=== PATIENT | female | born 1945 ===

== ENCOUNTER 2023-12-05 13:45 | Outpatient (RCR) | payer MEDICARE, SELFPAY ==
[2021-10-05 16:00] VITALS: BMI 20.9
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
== END 2023-12-06 10:59 ==
LOC: PHYS 13:45
PROVIDERS: Family Provider Nurse Practitioner Family; PCP Nurse Practitioner Family; Referring Provider Nurse Practitioner Family; Visit Provider Nurse Practitioner Family
DX: H81.10 Benign paroxysmal vertigo, unspecified ear (principal); H83.09 Labyrinthitis, unspecified ear
CPT/HCPCS: 97110; 97112; 97140; 97163; 97535

== ENCOUNTER 2024-01-10 09:04 | Emergency (ER) | payer MEDICARE, SELFPAY ==
[2021-10-05 16:00] VITALS: BMI 20.9
[2024-01-10] VITALS (7 sets, daily range): BP systolic 137–149; BP diastolic 65–70; PULSE 60–100; RESP 14–16; TEMP 36.4–36.8; O2SAT 94–98; BMI 20.3
--- NOTE | 2024-01-10 09:17 | DI.RAD.S_ITS ---
PROCEDURE: XR CHEST 1V INDICATIONS: suspected sepsis TECHNIQUE: One view of the chest was acquired. COMPARISON: None. FINDINGS: Surgical changes and devices: None. Lungs and pleura: Lungs are clear. No pleural effusions or pneumothorax. Mediastinum: Mediastinal contours appear normal. Heart size is normal. Bones and chest wall: No suspicious bony lesions. Overlying soft tissues appear unremarkable. IMPRESSION: No acute cardiopulmonary abnormality is seen. Dictated by: Missael Newby M.D. on 01/10/2024 at 10:00 Approved by: Missael Newby M.D. on 01/10/2024 at 10:04
--- NOTE | 2024-01-10 09:17 | EKG_ITS ---
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
--- NOTE | 2024-01-10 09:21 | DI.CT.S_ITS ---
PROCEDURE: CT HEAD/BRAIN WO CON INDICATIONS: confused TECHNIQUE: Noncontrast 4.5 mm thick angled axial sections acquired from the foramen magnum to the vertex, with coronal and sagittal reformats. For radiation dose reduction, the following was used: automated exposure control, adjustment of mA and/or kV according to patient size. COMPARISON: None. FINDINGS: Image quality: Diagnostic. CSF spaces: Basal cisterns are patent. No extra-axial fluid collections. The ventricles are symmetric in size and shape. Brain: No intracranial bleeds or masses. There is cerebral volume loss for age, with resultant ventricular and sulcal prominence. There are periventricular and deep white matter chronic small vessel ischemic changes. There is intracranial internal carotid artery atherosclerosis. Skull and face: Calvarium and visualized facial bones appear intact, without suspicious lesions. Sinuses: Visualized sinuses and mastoids are clear. IMPRESSION: 1. CT head without acute intracranial abnormalities or acute calvarial fractures. 2. Age-related senescent changes and sequela of chronic small vessel ischemic disease. Dictated by: Jay Sterling M.D. on 01/10/2024 at 9:52 Approved by: Jay Sterling M.D. on 01/10/2024 at 9:52
[2024-01-10 09:41] LABS: Add Manual Diff / Slide Review NO; Basophils Absolute Auto 100 /uL (0-100); Basophils Percent Auto 0.7 % (0-2); Eosinophils Absolute Auto 100 /uL (0-450); Eosinophils Percent Auto 1.1 % (2-4); Hematocrit 39.4 % (36-46); Hemoglobin 13.1 g/dL (12.0-16.0); Lymphocytes Absolute Auto 1900 /uL (1100-4500); Lymphocytes Percent Auto 17.8 % (25-40); Mean Corpuscular HGB Conc 33.2 % (30-36); Mean Corpuscular Hemoglobin 31.3 PG (26-34); Mean Corpuscular Volume 94.4 fL (80-100); Monocytes Absolute Auto 700 /uL (0-900); Monocytes Percent Auto 6.8 % (3-14); Neutrophils Absolute Auto 7800 /uL (1500-7000); Neutrophils Percent Auto 73.6 % (50-75); Platelet Count 262 X10^3/uL (150-400); Red Blood Cell Count 4.17 X10^6/uL (4.0-5.2); Red Cell Distribution Width 13.3 % (11.6-14.8); White Blood Cell Count 10.6 X10^3/uL (4.5-11.0)
[2024-01-10] MEDS: SODIUM CHLORIDE 0.9% 1,000 ML 1000 ML IV (09:41)
[2024-01-10 09:47] LABS: INR 0.9 (0.9-1.3); Prothrombin Time 10.6 SECONDS (9.4-12.5)
[2024-01-10 09:49] LABS: PTT Partial Thromboplastin Tim 33 SECONDS (25.1-36.5)
[2024-01-10 09:51] LABS: Alanine Aminotransferase 12 IU/L (<35); Albumin 4.2 g/dL (3.5-5.0); Albumin Globulin Ratio 1.6 (1.0-2.8); Alkaline Phosphatase 69 U/L (38-126); Aspartate Aminotransferase 26 IU/L (14-36); BUN Creatinine Ratio 17.9 (6-22); Bilirubin Total 0.4 mg/dL (0.2-1.3); Blood Urea Nitrogen 12 mg/dL (7-17); Calcium 8.7 mg/dL (8.4-10.2); Carbon Dioxide 29 mmol/L (22-32); Chloride 102 mmol/L (98-107); Estimated Glomerular Filt Rate > 60 mL/min (>60); Globulin 2.6 g/dL (1.7-4.1); Glucose 97 mg/dL (80-110); HEMOLYSIS 30 (0-50); Lipase 34 U/L (23-300); Potassium 3.8 mmol/L (3.4-5.1); Sodium 134 mmol/L (137-145); Total Protein 6.8 g/dL (6.3-8.2)
[2024-01-10 09:52] LABS: Lactate (Lactic Acid) 0.8 mmol/L (0.7-2.1)
[2024-01-10 10:08] LABS: Procalcitonin 0.035 ng/mL (<0.5)
--- NOTE | 2024-01-10 10:39 | ED.NEUROSD ---
HPI - Neuro Symptoms/Deficit General Chief Complaint: Neuro Symptoms/Deficit Stated Complaint: thinks had a mini stroke Time Seen by Provider: 01/10/24 10:38 Source: patient Mode of arrival: Ambulatory History of Present Illness HPI Narrative: 78-year-old female history of left hip surgery, osteoarthritis anticoagulation who presents with complaint of urinary incontinence overnight, patient did note some dysuria urgency frequency in the last couple days she took some azo and symptoms improved. She states she woke up this morning had Peed the bed. She states she felt like she was off she was having some trouble with her speech. She would to sort of off. She feels a little bit off balance but has been able to ambulate. Denies headaches, denies fevers, no chest pain or shortness of breath, no vision changes. No nausea or vomiting no abdominal back or flank pain. Patient denies any issues with bowel movements. She denies any numbness tingling or weakness of her extremities she states they all move appropriately. She states home medications include Xanax and Soma. She has had prior appendectomy and tonsillectomy. Does not tolerate narcotics such as OxyContin she gets vomiting. Quit smoking in her 20s only smoked for 4 years. She has 1 beer weekly, no recreational drugs. Her primary care physician is Deneen Nina. On Anticoagulants: No Related Data Home Medications Medication Instructions Recorded Confirmed alprazolam 1 mg tablet (Xanax) 1 mg PO TID anxiety 09/08/20 09/26/23 carisoprodol 350 mg tablet (Soma) 350 mg PO BEDTIME 09/08/20 09/26/23 Previous Rx's Medication Instructions Recorded ondansetron 4 mg disintegrating 4 mg PO Q8H PRN nausea and 06/22/23 tablet vomiting #10 tabs nitrofurantoin 100 mg PO Q12H 7 days #14 caps 01/10/24 monohydrate/macrocrystals 100 mg capsule (Macrobid) Allergies Allergy/AdvReac Type Severity Reaction Status Date / Time Penicillins Allergy Severe Nausea, Verified 01/10/24 09:18 Rash, difficulty breathing tetracycline Allergy Nausea Verified 01/10/24 09:18 Milk Containing Products AdvReac Mild Diarrhea Verified 01/10/24 09:18 (Dairy) Opioids - Morphine Analogues AdvReac Mild Nausea Verified 01/10/24 09:18 Review of Systems Review of Systems ROS Unobtainable: All systems reviewed & are unremarkable except as noted in HPI and below Hematologic/Lymphatic On Anticoagulants: No Patient History Medical History Depression Measles Chicken pox Anemia Tinnitus Painful menstrual periods Heavy menstrual period Abnormal Pap smear of cervix History of urinary incontinence Elevated prostate specific antigen (PSA) Dizziness Murmur, cardiac Elevated cholesterol Osteoarthritis Anxiety Surgical History Anesthesia History of right hip replacement History of cataract removal with insertion of prosthetic lens (~2009) History of endometrial ablation Family History Daughter Non Hodgkin's lymphoma Father History of heart disease Hypertension Mother Mental health problem Social History household members: none Smoking Status: Former smoker alcohol intake: current Smoking Status: Former smoker alcohol intake frequency: holidays/special occasions only Substance Use Type: sedatives Exam Narrative Exam Narrative: GEN: well nourished, well appearing female, alert and oriented x 3, patient appears to be in mild distress. HEENT: Atraumatic, pupils are equal round reactive to light, extraocular movements are intact, nares are clear, TMs are clear with no fluid, there is no conjunctival pallor. Throat is clear without any exudates, erythema, tonsillar enlargement or uvular deviation, no facial droop. HEART: Regular rate and rhythm without murmur, clicks, rubs. Pulses are equal in upper and lower extremities LUNGS:Lungs clear to auscultation, no wheezes, rales, crackles, chest moves symmetrically ABD:bowel sounds normal, soft, non-tender, no guarding, rebound, rigidity, no masses noted, no hepatosplenomegaly :No CVA tenderness MSCL: Non-tender, no muscle atrophy, muscles strength 5/5 upper and lower extremities, full range of motion NEURO:CN 2-12 intact, sensation normal, finger nose finger test normal, heel patino test normal, no dysarthria or aphasia. Initial Vital Signs Initial Vital Signs: Vital Signs Temperature 98.3 F 01/10/24 09:05 Pulse Rate 63 01/10/24 09:05 Respiratory Rate 14 01/10/24 09:05 Blood Pressure 149/70 H 01/10/24 09:05 Pulse Oximetry 94 01/10/24 09:05 Oxygen Delivery Method Room Air 01/10/24 09:05 Scores NIH Stroke Scale Level of Conciousness: Alert, keenly responsive Ask month/age: Answers both questions correctly. Open/close eyes, close hand: Performs both tasks correctly Best gaze horizontal: Normal Visual brooks: No visual loss Facial palsy: Normal symetrical movement Left arm drift: No drift for full 10 sec Right arm drift: No drift for full 10 sec Left leg drift: No drift for full 5 sec Right leg drift: No drift for full 5 sec Limb ataxia: Absent Sensory on face/arms/legs: Normal, no sensory loss Best language: No aphasia, normal Dysarthria: Normal Extinction or inattention: No abnormality Total NIH Stroke scale score: 0 Course Orders Ordered: ED Orders 01/10/24 11:20 Urinalysis and Microscopic Stat Urine Culture Stat Discontinued Medications Sodium Chloride (Normal Saline 0.9%) 1,000 mls @ 1,000 mls/hr IV BOLUS ONE Stop: 01/10/24 10:16 Last Infusion: 01/10/24 11:30 Dose: Infused Documented By: Admin: 01/10/24 09:41 Dose: 1,000 mls/hr Documented By: LISETTE Nitrofurantoin Macrocrystals (Nitrofurantoin Er 100 Mg Capsule) 100 mg PO NOW ONE Stop: 01/10/24 12:03 Ondansetron HCl (Ondansetron 4 Mg/2 Ml Inj) 4 mg IV NOW PRN PRN Reason: Nausea And Vomiting Vital Signs Vital signs: Vital Signs - 8 hr 01/10/24 12:21 Temperature 97.6 F Pulse Rate 100 H Respiratory Rate 16 Blood Pressure 148/68 H Pulse Oximetry 98 Oxygen Delivery Method Room Air MDM - Neuro Symptoms/Deficit Lab Data 01/10/24 09:27 01/10/24 09:27 Labs: Lab Results 01/10/24 01/10/24 Range/Units 09:27 11:20 WBC 10.6 (4.5-11.0) X10^3/uL RBC 4.17 (4.0-5.2) X10^6/uL Hgb 13.1 (12.0-16.0) g/dL Hct 39.4 (36-46) % MCV 94.4 (80-100) fL MCH 31.3 (26-34) PG MCHC 33.2 (30-36) % RDW 13.3 (11.6-14.8) % Plt Count 262 (150-400) X10^3/uL Neut % (Auto) 73.6 (50-75) % Lymph % (Auto) 17.8 L (25-40) % [place] % (Auto) 6.8 (3-14) % Eos % (Auto) 1.1 L (2-4) % Baso % (Auto) 0.7 (0-2) % Neut # (Auto) 7800 H (8378-6537) /uL Lymph # (Auto) 1900 (3575-9470) /uL [place] # (Auto) 700 (0-900) /uL Eos # (Auto) 100 (0-450) /uL Baso # (Auto) 100 (0-100) /uL PT 10.6 (9.4-12.5) SECONDS INR 0.9 (0.9-1.3) APTT 33 (25.1-36.5) SECONDS Sodium 134 L (137-145) mmol/L Potassium 3.8 (3.4-5.1) mmol/L Chloride 102 (98-107) mmol/L Carbon Dioxide 29 (22-32) mmol/L BUN 12 (7-17) mg/dL Creatinine 0.67 (0.52-1.04) mg/dL Estimated GFR > 60 (>60) mL/min BUN/Creatinine Ratio 17.9 (6-22) Glucose 97 (80-110) mg/dL Lactate 0.8 (0.7-2.1) mmol/L Calcium 8.7 (8.4-10.2) mg/dL Total Bilirubin 0.4 (0.2-1.3) mg/dL AST 26 (14-36) IU/L ALT 12 (<35) IU/L Alkaline Phosphatase 69 (38-126) U/L Total Protein 6.8 (6.3-8.2) g/dL Albumin 4.2 (3.5-5.0) g/dL Globulin 2.6 (1.7-4.1) g/dL Albumin/Globulin Ratio 1.6 (1.0-2.8) Lipase 34 (23-300) U/L Procalcitonin 0.035 (<0.5) ng/mL Urine Color Yellow Urine Appearance Sl cloudy Urine pH 6.0 (4.5-8.0) Ur Specific [place] 1.010 (1.000-1.035) Urine Protein Negative (Negative) Urine Glucose (UA) Negative (Negative) g/dL Urine Ketones Negative (NEGATIVE) Urine Occult Blood Trace-intact (Negative) Urine Nitrate Positive H (Negative) Urine Bilirubin Negative (NEGATIVE) Urine Urobilinogen 0.2 (0.2) E.U./dL Ur Leukocyte Esterase 2+ H (NEGATIVE) Urine RBC 5-10/hpf H (0-5/HPF) Urine WBC 10-30/hpf H (0-5/HPF) Ur Squamous Epith Cells 0-1 /hpf (0-5/HPF) Urine Bacteria Many (>30) H (None) Ur Culture Indicated? Specimen cultured Vol Urine Centrifuged 10ml (spun) Imaging Data CT scan - head: Radiologist's Impression: Close Head CT (Signed) Jay Sterling - 01/10/24 Chest X-Ray (Signed) Missael Newby - 01/10/24 Hip X-Ray (Signed) Alcides Maldonado - 09/17/20 Hip X-Ray (Signed) Missael Newby - 09/17/20 Launch?[place] [address] CT Scan Report Signed Patient: Josefina No MR#: [id number] : 1945 Acct:[id number] Age/Sex: 78 / F Date of Service: 01/10/24 Loc: ED Accession Number: [id number] Procedure: CT head/brain wo con Ordering Provider: Saranya Haas D.O. PROCEDURE: CT HEAD/BRAIN WO CON INDICATIONS: confused TECHNIQUE: Noncontrast 4.5 mm thick angled axial sections acquired from the foramen magnum to the vertex, with coronal and sagittal reformats. For radiation dose reduction, the following was used: automated exposure control, adjustment of mA and/or kV according to patient size. COMPARISON: None. FINDINGS: Image quality: Diagnostic. CSF spaces: Basal cisterns are patent. No extra-axial fluid collections. The ventricles are symmetric in size and shape. Brain: No intracranial bleeds or masses. There is cerebral volume loss for age, with resultant ventricular and sulcal prominence. There are periventricular and deep white matter chronic small vessel ischemic changes. There is intracranial internal carotid artery atherosclerosis. Skull and face: Calvarium and visualized facial bones appear intact, without suspicious lesions. Sinuses: Visualized sinuses and mastoids are clear. IMPRESSION: 1. CT head without acute intracranial abnormalities or acute calvarial fractures. 2. Age-related senescent changes and sequela of chronic small vessel ischemic disease. Dictated by: Jay Sterling M.D. on 01/10/2024 at 9:52 Approved by: Jay Sterling M.D. on 01/10/2024 at 9:52 Chest x-ray: Radiologist's Impression: [address] [address] XRay Report Signed Patient: Josefina No MR#: [id number] : 1945 Acct:[id number] Age/Sex: 78 / F Date of Service: 01/10/24 Loc: ED Accession Number: [id number] Procedure: XR chest 1V Ordering Provider: Saranya Haas D.O. PROCEDURE: XR CHEST 1V INDICATIONS: suspected sepsis TECHNIQUE: One view of the chest was acquired. COMPARISON: None. FINDINGS: Surgical changes and devices: None. Lungs and pleura: Lungs are clear. No pleural effusions or pneumothorax. Mediastinum: Mediastinal contours appear normal. Heart size is normal. Bones and chest wall: No suspicious bony lesions. Overlying soft tissues appear unremarkable. IMPRESSION: No acute cardiopulmonary abnormality is seen. Dictated by: Missael Newby M.D. on 01/10/2024 at 10:00 Approved by: Missael Newby M.D. on 01/10/2024 at 10:04 ECG Data Attestation: I personally reviewed and interpreted this ECG as follows: Interpretation: Sinus rhythm rate of 61 CA 184 QRS 82 QTC of 424. No acute ST elevation or depression noted. MDM Narrative Medical decision making narrative: 78-year-old female who states she feels off today. States she felt sort of difficulty with speaking she would some incontinence in bed. She has had urinary symptoms last few days but took azo and symptoms had gotten better. She has not taken any antibiotics. She does not appear septic afebrile. Her NIH of 0 she is quite mobile, she is able to remove wrapping from straw and below the rapid across the room. She has no difficulty gave a very detailed description for the NIH cards and pictures. Labs show a CBC with a white count of 10.6 hemoglobin of 13 platelets of 262, INR 0.9 sodium of 134 potassium 3.8 chloride of 102 CO2 of 29 BUN 12 creatinine 0.67, glucose of 97 LFTs are negative, protocol 0.035. Blood cultures pending EKG shows soreness sinus rhythm rate of 61 CA 184 QRS 82 QTC 424. Urine patient has a nitrate positive urine 2+ leuks. Head CT shows CT without acute change, age-related senescent changes sequela of chronic small-vessel ischemic disease. Chest x-ray shows no acute change. Suspicion for TIA is lower suspect more UTI source of symptoms. Discussed with patient we will start antibiotic. Plan for discharge home as she is ambulating without issue, she is alert appropriate feels appropriate for discharge home. Stroke Core Measures Exclusion Criteria TPA in CVA: Unknown Onset of Symptoms (Woke up with symptoms) Discharge Plan Departure Patient Disposition: Home Clinical Impression: Acute UTI Activity Restrictions/Additional Instructions: Your workup today does show a UTI. I would expect you to start to feel improved over the next 24 hours with the antibiotics. Your urinary symptoms should also start to improve. You can take azo for symptoms but it will not resolve your infection, take the antibiotics to help treat the infection. Take antibiotics until completed. Prescription was [facility] to [facility] [place] Please return for fevers, any changes in mental status, lightheadedness or passing out, new abdominal back or flank pain, vomiting, other urinary issues or other new changes. Prescriptions: New nitrofurantoin monohyd/m-cryst [Macrobid] 100 mg capsule 100 mg PO Q12H 7 Days Qty: 14 0RF Rx Instructions: must administer with a meal/food No Action carisoprodol [Soma] 350 mg Tablet 350 mg PO BEDTIME Patient Comments: currently taking 1/4 tab at bedtime alprazolam [Xanax] 1 mg Tablet 1 mg PO TID Patient Comments: Doesn't take this often ondansetron 4 mg tablet,disintegrating 4 mg PO Q8H PRN (Reason: nausea and vomiting) Qty: 10 0RF Referrals: Peranteau,Deneen, [employer] [Primary Care Provider] - Stand Alone Forms: Patient Portal/API
[2024-01-10 11:49] LABS: Appearance Urine UA SL CLOUDY; Bilirubin Urine UA NEGATIVE (NEGATIVE); Color Urine UA YELLOW; Glucose Urine UA NEGATIVE (Negative); Ketones Urine UA NEGATIVE (NEGATIVE); Leukocyte Esterase Urine UA 2+ (NEGATIVE); Nitrite Urine UA POSITIVE (Negative); Occult Blood Urine UA TRACE-INTACT (Negative); Protein Urine UA NEGATIVE (Negative); Urobilinogen Urine UA 0.2 E.U./dL (0.2)
[2024-01-10 12:13] LABS: Bacteria Urine Many (>30); Culture Indicated Urine Specimen Cultured; RBC Urine 5-10/HPF (0-5/HPF); Squamous Epithelial Cell Urine 0-1 /HPF (0-5/HPF); Urine Volume 10mL (spun); WBC Urine 10-30/HPF (0-5/HPF)
== END 2024-01-10 12:23 | disposition home or self-care (01) ==
PROVIDERS: Emergency Provider Emergency Medicine; Family Provider Nurse Practitioner Family; PCP Nurse Practitioner Family
DX: N39.0 Urinary tract infection, site not specified (principal); R41.0 Disorientation, unspecified
CPT/HCPCS: 36415; 70450; 71045; 80053; 81001; 83605; 83690; 84145; 85025; 85610; 85730; 87040; 87077; 87086; 87186; 93005; 96360; 96361; 99284